=== PATIENT | male | born 1985 | race Caucasian/White ===

== ENCOUNTER 2016-07-20 13:02 | Day surgery (SDC) | payer OTHER ==
--- NOTE | 2016-07-19 12:41 | PCM.ANEPRE ---
Anesthesia Pre-Op Review Reason for Review: FYI- EOSINOPHILIC GASTROENTERITIS REQ. CHRONIC TPN,RECENT HOSP ADMISSIONS Anesthesia Recommendations: Proceed with Procedure Additional Comments Patient scheduled for cysto/stent. PMH includes chronic pain with opiod use, anxiety, s/p bilateral BKA, eosinophilic gastroenteritis requiring TPN, and recent pneumonia (07/06). Continues to have some fatigue per Dr. Bonner's note. No further workup needed. OK to proceed. Hadley Morelos MD Jul 19, 2016 12:41
[~2016-07-20] VITALS: Ht 177.8 cm; Wt 36.9 kg
[2016-07-20] VITALS (8 sets, daily range): BP systolic 114–155; BP diastolic 65–76; PULSE 65–78; RESP 11–16; O2SAT 96–99
[~2016-07-20 13:02] MED LIST: ACET-171 PO; BACL20TA PO; DIL4T PO; DULO60CA42 PO; Dexamethasone 4 mg/mL Inj IVPUSH PRN; EPHEDrine Sulfate 50 mg/mL Inj IVPUSH PRN; FAMO20VI8 IV; LEVO500T79 PO; LORA-305 PO; LORA10CA PO; LORA2TAB PO; Labetalol 5 mg/mL 4 mL Inj IV PRN; Lactated Ringer's 1,000 ML IV SCH; Lactated Ringer's 500 ML IV PRN; MetoCLOpramide 5 mg/mL 2 mL Inj IVPUSH PRN; OMEP40CA36 PO; ONDA-54 PO; Ondansetron 2 mg/mL 2 mL Inj IVPUSH PRN; POLY17PO6 PO; Phenylephrine 10,000 mCg/mL Inj IVPUSH PRN; TAMS0.4C98 PO; levoFLOXacin Inj 500 MG in IV Premix 1 EACH IV SCH
[2016-07-20] MEDS ORDERED: Dexamethasone 4 mg/mL Inj ONE (13:03)
[2016-07-20] MEDS ORDERED: Propofol 10,000 mCg/mL 20 mL Inj ONE (13:03)
[2016-07-20] MEDS ORDERED: Ketamine 10 mg/mL 20 mL Inj ONE (13:03)
[2016-07-20] MEDS ORDERED: Succinylcholine Chloride 20 mg/mL 5 mL Inj ONE (13:03)
[2016-07-20] MEDS ORDERED: Ondansetron 2 mg/mL 2 mL Inj ONE (13:03)
[2016-07-20] MEDS ORDERED: fentaNYL-PF 50 mCg/mL 2 mL Inj ONE (13:03)
[2016-07-20] MEDS ORDERED: Lactated Ringer's 1,000 ML IV ONE (14:05)
--- NOTE | 2016-07-20 14:58 | PCM.HPANE ---
Patient Data Date of Service: Jul 20, 2016 Surgeon Admitting Provider: Attending Provider:Siena Bonner MD Primary Care Physician:Coretta Bailon Other Provider:Shelli Goddard Anesthesia Reason for Visit Right Ureteral Stone Ht/WT & BMI Height (Feet): 5 Height (Inches): 10 Weight (Kilograms): 36.9 Body Mass Index 11.00 Allergies Coded Allergies: NSAIDS (Non-Steroidal Anti-Inflamma (Verified Allergy, Severe, THROAT SWELLING, 07/19/16) metoclopramide (Verified Adverse Reaction, Severe, EXTREME ANXIETY,PANIC ATTACK, 07/19/16) Past Anesthesia History Anesthesia History: Denies:: Anesthesia Reactions, Fam Anesthesia Reaction, Fam Malignant Hypertherm, Malignant Hyperthermia Diabetes History Hx Diabetes?: No Current Bedside Blood Glucose: 82 MRSA MRSA: No Medications Reported Medications Tamsulosin (Flomax)0.4 Mg Capsule0.4 Mg PO DAILY Ref 0 07/19/16 Levofloxacin 500 Mg Critxr644 Mg PO DAILY 07/19/16 Acetaminophen 500 Mg Tablet1,000 Mg PO Q6H PRN For Fever 07/19/16 Loratadine (Claritin)10 Mg Kqjxuvk39 Mg PO DAILY Ref 0 07/19/16 Lorazepam 2 Mg Tablet2 Mg PO TID PRN For Anxiety Ref 0 07/19/16 Famotidine/Pf (Famotidine 20 mg/2 ml Vial)20 Mg/2 Ml Vial40 Mg IV DAILY 10/19/15 Baclofen 20 Mg Ygufis24 Mg PO TID Ref 0 04/16/15 Duloxetine (Cymbalta)60 Mg Capsule.dr60 Mg PO DAILY Ref 0 04/16/15 Ondansetron 8 Mg Tablet4 Mg PO Q8H PRN PRN 06/05/14 Omeprazole 40 Mg Capsule.dr40 Mg PO BID 30 Days Ref 0 06/05/14 Polyethylene Glycol 3350 (Miralax)17 Gm Powd.pack17 Gm PO PRN 06/05/14 Hydromorphone (Dilaudid)4 Mg Tablet4-8 Mg PO A PRN For Pain Ref 0 06/05/14 Lorazepam (Ativan)2 Mg Tablet2 Mg PO TID PRN For Anxiety Ref 0 06/05/14 Discontinued Reported Medications Clobetasol Propionate/Emoll (Clobetasol Emollient 0.05% Crm)15 Gm Cream..g.1 Appl TOP DIRECTED #1 TUBE 10/19/15 History History of ENT Problems?: Yes HEENT History: Positive for:: Sinus Problem (SEASONAL ALLERGIES) Hx of Heart Problems?: No Cardiovascular History: Denies:: Heart Murmur Hypertension Hx of Respiratory Problem?: Yes Respiratory History: Positive for:: Pneumonia (ADMITTED [facility] W/ STAPH+ PNEUMONIA (DISCH 07/10/16)) Denies:: Use of C-PAP Machine Hx Neurologic Problems?: Yes Other Neurological Pertinent: CHRONIC PAIN SYNDROME-ON OPIOIDS Hx of GI Problems?: Yes Gastrointestinal History: Positive for:: Gall Bladder Disease (S/PO DANIELLE) Gastroesphageal Reflux Other GI Pertinent History: C/OF ABD PAIN, N&V HX EOSINOPHILIC GASTROENTERITIS-FOLLOWED BY DR. Lynda BOYER-ONCOLOGY, DR. MARK ARNETT-[facility] & PLANNED CONSULTATION @ [facility] S/P PORTACATH FOR CHRONIC HOME TPN,BOWEL BX Hx of Problems?: Yes Genitourinary History: Positive for:: Kidney Stones (HX PRIOR STONES S/P LT LITHOTRIPSY, CYSTO/RT STENT (06/2016)) Urinary Tract Infection (HOSP @ [facility] 06/2016 W/ PYELONEPHRITIS) Other Pertinent History: RT URETERAL STONE=CURRENT PROBLEM C/OF FREQUENCY & URGENCY Male Hx: Denies:: Prostate Problems Scrotal Mass Testicular Surgery Skin History: Denies:: History Skin Disorders? Pressure Ulcers Hx Musculoskeletal Problems?: Yes Musculoskeletal History: Denies:: Back Injury (C/OF BACK PAIN) Hx of Psycho/Social Problems?: Yes Psycho Social History: Positive for:: Anxiety Hx Depression Hx Surgeries?: Yes (B/ BKA'S W/ REVISION,CYSTO/STENT,LITHOTRIPSY,DANIELLE,PORT, BOWEL BX) Hx Any Other Health Problems?: Yes Other History: Denies:: Cancer Endocrine Disease (C/OF NIGHT SWEATS) Hospitalization Thyroid Disease History Blood Transfusions: Denies:: Blood Transfusions Hx Diabetes: NoBedside Blood Glucose: 82 Smoking Status: Smoker Current Status UNK Have You Smoked inLast 12 mo: No Stop/Bang S-Snoring: Do You Snore Loudly: Yes T-Tired: feel tired, fatigued: Yes O-Obsered: Observed not breath: Yes P-Blood Pressure: treated: No B- Body Mass Index > 35 kg/m2: No A- Age over 50: No N- Neck Large Circumference: No G- Gender Male: Yes WILLIE Total Score: 4 WILLIE Risk Assessment: High Risk, =/>3 Yes Risk Assessment Category Category 1A: Patient has history of documented sleep apnea, and HAS NOT received any narcotic, sedative or anesthesia administration during this stay. Category 1B: Patient has history of documented sleep apnea, and HAS received any narcotic , sedative or anesthesia administration during this stay Category 2: Patient has SUSPECTED Obstructive Sleep Apnea, and HAS received any narcotic , sedative or anesthesia administration during this stay. Category 3: Patient has SUSPECTED Obstructive Sleep Apnea and HAS NOT received narcotic, sedative or anesthesia administration during this stay. Category 4: Outpatient in Procedural Areas with known sleep apnea or who screen positive for High Risk via the STOP/BANG questionnaire. Exam Exam Vital Signs Vital Signs Date Time Temp Pulse Resp B/P Pulse Ox O2 Delivery O2 Flow Rate FiO2 07/20/16 14:03 36.5 65 16 129/76 96 Room Air General Appearance: Alert, Oriented X3, Cooperative, No Acute Distress HEENT/AIRWAY: MP 2 Lungs: Clear to Auscultation, Normal Air Movement Heart: Exam Unremarkable, Regular Rate/Rhythm, No Murmurs/Rubs/Gallops Meds/Labs/Diagnostics Admission Meds Current Medications Lactated Ringer's (Lr) 1,000 ml @ ud STK-MED ONCE IV Last administered on 07/20t 14:05; Start 07/20/16 at 14:05; Stop 07/20/16 at 14:06; Status DC Bedside Blood Glucose: 82 Plan Impression Patient chart reviewed, patient interviewed and anesthestic plan with risks, benefits, and alternatives discussed, and informed consent obtained. NPO Status: 0900 ASA Physical Status: ASA2 Mod Systemic Disease Anesthetic Plan: GA Bene/Risks/Altern/Consents: Yes HP Complete Prior to Induction: Yes Duane Brooke MD Jul 20, 2016 14:57
[2016-07-20] MEDS ORDERED: Belladonna Alk-Opium 60 mg Rectal Suppository RECTAL ONE (16:00)
[2016-07-20] MEDS ORDERED: Ondansetron 8 mg ODT Tablet PO PRN (16:15)
[2016-07-20] MEDS: fentaNYL-PF 50 mCg/mL 2 mL Inj IVPUSH PRN ×2 (16:18→16:25)
[2016-07-20] MEDS: HYDROmorphone 1 mg/mL Inj IVPUSH PRN ×3 (16:19→17:11)
[2016-07-20] MEDS ORDERED: Heparin 5,000 Unit/mL Inj ONE (17:58)
--- NOTE | 2016-07-20 22:07 | PCM.ANEP1 ---
Post Anesthesia Phase 1 PACU Phase 1 Assessment Date of Service: Jul 20, 2016 Vital Signs Vital Signs Date Time Temp Pulse Resp B/P Pulse Ox O2 Delivery O2 Flow Rate FiO2 07/20/16 17:00 37 67 16 135/73 97 Room Air 07/20/16 16:45 37.1 69 16 118/67 98 Room Air 07/20/16 16:41 37.1 07/20/16 16:40 72 12 125/65 99 Room Air 07/20/16 16:33 77 12 114/65 96 Room Air 07/20/16 16:24 78 11 129/65 96 Room Air 07/20/16 16:21 77 14 129/65 96 Room Air 07/20/16 16:11 37.0 73 15 155/75 96 Room Air Anesthetic Administered: GA Level of Alertness: Awake, talking Pain: No Nausea or Vomiting: No Oxygen Delivery: Room Air Lungs: Clear to Auscultation, Normal Air Movement Duane Brooke MD Jul 20, 2016 22:07
--- NOTE | 2016-07-20 22:08 | PCM.ANEP2 ---
Post Anesthesia Evaluation ASA/CMS Post Anesthesia VS in Patient's Normal Range?: Yes Resp Stable; Airway Patent?: Yes CV Function & Hydration Stable: Yes Mental Status Recovered?: Yes Pain control Satisfactory?: Yes N/V Control Satisfactory?: Yes Duane Brooke MD Jul 20, 2016 22:08
--- NOTE | 2016-07-21 23:54 | OP ---
[address] [address] OPERATIVE REPORT PATIENT: SUELLEN GARZON : 1985 MR#: [id number] ADMIT: 07/20/2016 JOB ID: [id number] DATE OF SURGERY: 07/20/2016 PROCEDURE: Right-sided ureteroscopy, laser lithotripsy basket stone removal and right-sided double-J stent removal and extraction. SURGEON: Siena Bonner MD. ANESTHESIA: General. PREOPERATIVE DIAGNOSIS(ES): Right-sided ureteral calculus, status post stent placement. POSTOPERATIVE DIAGNOSIS(ES): Right-sided ureteral calculus, status post stent placement. 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 The patient had presented approximately one month prior with a right-sided ureteral calculus and was set up for ureteroscopic stone extraction. He came into the hospital on June 24, 2016, complaining of fever, chills and anorexia; thus, he was stented only at the time, admitted to the hospitalist service for a workup, treated for presumed urinary tract infection though his urine actually grew nothing from the post obstructed urine culture. Had some ongoing issues with fever and chills felt perhaps to be pneumonia. Had his central line changed, which he uses for TPN, and presented for elective attempted stone extraction on July 20, 2016, feeling pretty good at baseline. His urine was clear. PROCEDURE IN DETAIL: After appropriate informed consent was obtained, the patient was brought to the operating room. He received IV Levaquin prior to onset of procedure. Adequate general anesthesia was induced. He was intubated given his history of reflux and digestive problems. He was carefully placed in dorsal lithotomy position. All pressure points carefully padded. Cleaned, prepped, and draped in the usual sterile fashion. Rigid scope was introduced in the patient's bladder. The right-sided end of the stent was located, this was pulled down, we passed a wire up next to the stent into good position into the renal pelvis. We then entered with the semi-rigid ureteroscope and were able to get up to the level of the stone. The ureter itself was nicely dilated from the stent being in place, however, it would not move beyond the spot of impaction given a little bit of inflammatory changes. We used the 270 micron laser fiber to break this up into a manageable size, brought out the pieces into the patient's bladder, sending one hardware supplies sales representative one out for stone analysis given the ureter was largely wide-open aside from a little bit of inflammatory changes where the stone had been impacted. We elected to leave him stent free. There was some self-limited hematuria from this ureter. It cleared up nicely. Patient's bladder was drained. He was given a B and O suppository for postop comfort, awakened, and taken in stable condition to the postanesthesia care unit.
[2016-07-28 15:09] LABS: Stone Color Tan (.)
== END 2016-07-20 23:59 | disposition home or self-care (01) ==
LOC: SAS 13:02
PROVIDERS: ATTEND Urology
DX: N20.1 Calculus of ureter (principal); K21.9 Gastro-esophageal reflux disease without esophagitis; G89.4 Chronic pain syndrome; F41.9 Anxiety disorder, unspecified; Z79.899 Other long term (current) drug therapy